=== PATIENT | female | born 1955 ===

== ENCOUNTER 2018-08-30 16:43 | Emergency (ER) | payer MEDICARE ==
[2018-08-30] MEDS ORDERED: ACETAMINOPHEN 325 MG TAB PO ONE (17:06)
--- NOTE | 2018-08-30 17:09 | Emergency Department Record ---
History of Present Illness - General Chief complaint: Lower Extremity Pain Stated complaint: RT LEG PAIN Time Seen by Provider: 08/30/18 17:03 Source: Patient Mode of Arrival: Ambulatory Limitations: No limitations - History of Present Illness Initial comments: The patient is here due to R knee pain for one day. It became painful when she was stretching to put her leg up on a stool. She denies any thigh pain, or calf pain or any leg swelling. ROM of the R knee does increase the pain along with ambulation. MD Complaint: Extremity pain, Joint pain Onset/Timin -: Days(s) Location: Right, Lower Leg History of Same: No Radiation: Proximal, Distal Severity scale (1-10): 5 Quality: Aching Consistency: Constant Improves with: Immobilization Worsens with: Walking, Weight bearing Associated Symptoms: Denies other symptoms - Related Data Home Medications Medication Instructions Recorded Confirmed Last Taken Atorvastatin Calcium 20 mg PO QHS 08/30/18 08/30/18 08/29/18 Gabapentin [Neurontin] 100 mg PO TID 08/30/18 08/30/18 08/30/18 Previous Rx's Medication Instructions Recorded Prednisone [Prednisone 20Mg] 40 mg PO DAILY #10 tab 08/30/18 Allergies Allergy/AdvReac Type Severity Reaction Status Date / Time erythromycin base AdvReac skin crawls Verified 08/30/18 16:56 Sulfa (Sulfonamide AdvReac nausea Verified 08/30/18 16:56 Antibiotics) Travel Screening - Travel/Exposure Within Last 30 Days Have you traveled within the last 30 days?: No Review of Systems Constitutional: Denies: Chills, Fever Eyes: Denies: Eye discharge ENT: Denies: Congestion Respiratory: Denies: Dyspnea Past Medical History - SOCIAL HISTORY Smoking Status: Never smoker Alcohol Use: None Drug Use: None - RESPIRATORY Hx Respiratory Disorders: No - CARDIOVASCULAR Hx Cardio Disorders: Yes Hx Cardiac Cath: Yes Hx Hypertension: Yes Hx Irregular Heartbeat: Yes Hx Pacemaker/Defib: Yes (pacemaker) Comment:: high cholesterol - NEURO Hx Neuro Disorders: No - GI Hx GI Disorders: Yes Hx Reflux: Yes - Hx Genitourinary Disorders: No - ENDOCRINE Hx Endocrine Disorders: Yes Hx Thyroid Disease: Yes - MUSCULOSKELETAL Hx Musculoskeletal Disorders: Yes Hx Arthritis: Yes - PSYCH Hx Psych Problems: Yes Hx Anxiety: Yes Hx Depression: Yes - HEMATOLOGY/ONCOLOGY Hx Hematology/Oncology Disorders: No Family Medical History Any Significant Family History?: No Physical Exam - General General Appearance: Alert, Oriented x3, Cooperative, No acute distress - Head Head exam: Atraumatic, Normocephalic, Normal inspection - Eye Eye exam: Normal appearance, PERRL - Neck Neck exam: Normal inspection, Full ROM. negative: Tenderness - Respiratory Respiratory exam: Normal lung sounds bilaterally. negative: Respiratory distress - Cardiovascular Cardiovascular Exam: Regular rate, Normal rhythm, Normal heart sounds - GI/Abdominal GI/Abdominal exam: Soft, Normal bowel sounds. negative: Rebound, Rigid, Tenderness - Extremities Extremities exam: Normal inspection, Full ROM, Normal capillary refill, Tenderness (The pain is very reproducible with palpation of the lateral R knee area. There is normal ROM with mild pain on full flexion. ), Other (The RLE is NVI with normal distal pulses.). negative: Calf tenderness (There is no calf, posterior knee or thign pain.), Joint swelling, Pedal edema Image of Full Body: 1 - Area of pain and tenderness. Course Vital Signs 08/30/18 16:53 Temperature 97.6 F Pulse Rate 66 Respiratory 20 Rate Blood Pressure 126/83 Pulse Ox 96 - Reevaluation(s) Reevaluation #1: I did discuss the xrays with the patient and the need for F/U with her PCP for recheck later this week. She may need to see an Pool Technician due to the significant arthritis. 08/30/18 17:56 Medical Decision Making - Data Complexity MDM Data: X-Ray Ordered and/or Reviewed - Radiology Data Radiology results: Report reviewed (R knee: possible loose body in lateral compartment. Significant DJD. ) Disposition Disposition: Discharge Clinical Impression: Knee pain, right Qualifiers: Chronicity: acute Qualified Code(s): M25.561 - Pain in right knee Disposition: Home, Self-Care Condition: (2) Stable Instructions: Arthralgia (ED) Additional Instructions: Please take Tylenol for pain along with a short course of Prednisone. Please see your family doctor later this week for recheck and bring an official Xray report to the visit. Prescriptions: Prednisone [Prednisone 20Mg] 40 mg PO DAILY #10 tab Forms: Patient Portal Access Time of Disposition: 17:58 Quality - Quality Measures Quality Measures: N/A - Blood Pressure Screening View Details: Yes Does Patient Have Any of the Following: No Blood Pressure Classification: Pre-Hypertensive BP Reading Systolic Measurement: 126 Diastolic Measurement: 83 Screening for High Blood Pressure: < Pre-Hypertensive BP, F/U Documented > [ [id number]] Pre-Hypertensive Follow-up Interventions: Referral to alternative/primary care provider.
--- NOTE | 2018-09-02 10:50 | RADIOLOGY REPORT ---
EXAM: RIGHT KNEE HISTORY: PATIENT HAS RIGHT LATERAL KNEE PAIN. TECHNIQUE: Four views of the right knee are provided without comparison examinations. FINDINGS: There is no radiographic evidence of a fracture or dislocation of the right knee. Moderate medial compartment joint space loss is noted with subchondral sclerosis and marginal osteophyte formation. There is a 10 mm radiopaque osseous body identified within the region of the posterolateral compartment suggesting a loose body. Clinical correlation is recommended. No significant suprapatellar bursal fluid is noted. IMPRESSION: NO RADIOGRAPHIC EVIDENCE OF AN ACUTE PROCESS INVOLVING THE RIGHT KNEE. DEGENERATIVE CHANGES OF THE RIGHT KNEE ARE NOTED DISCUSSED ABOVE. POSSIBLE LOOSE BODIES NOTED WITHIN THE LATERAL COMPARTMENT. IF THERE IS FURTHER CLINICAL CONCERN THEN AN MRI OF THE RIGHT KNEE CAN BE OBTAINED FOR FURTHER EVALUATION. JOB NUMBER: [id number] [facility]
== END 2018-08-30 18:18 | disposition home or self-care (01) ==
LOC: ER 16:43
DX: M25.561 Pain in right knee (principal); I10 Essential (primary) hypertension; Z95.0 Presence of cardiac pacemaker
CPT/HCPCS: 99283

== ENCOUNTER 2019-07-08 11:14 | Day surgery (SDC) | payer MEDICARE, SELFPAY ==
[2019-07-08] MEDS ORDERED: FENTANYL PF 100MCG/2ML VIAL IV ONE (11:15)
[2019-07-08] MEDS ORDERED: PROPOFOL 10 MG/ML VIAL IV ONE (11:15)
[2019-07-08] MEDS ORDERED: LIDOCAINE 2% MDV (20MG/ML) 20ML VIAL IV ONE (11:15)
--- NOTE | 2019-07-12 09:00 | Operative Note ---
SURGEON: Annamaria Sykes MD OPERATION: ESOPHAGOGASTRODUODENOSCOPY. INDICATIONS: This is a 64-year-old female with history of gastroesophageal reflux disease with intermittent episodes of dysphagia who presented for esophagogastroduodenoscopy. POSTOPERATIVE DIAGNOSES: 1. Normal esophagus, stomach, and duodenum. 2. Status post Mcbride dilatation to 60-Bruneian. ANESTHESIA: Sedation is per Anesthesia. Pulse oximetry was monitored throughout the procedure to maintain O2 saturation of 90% or greater. Supplemental oxygen was administered via nasal cannula. Cardiac and vital signs were monitored throughout the duration of the procedure, and they were stable. The procedure of esophagogastroduodenoscopy and risks and benefits of the procedure, including the risk of bleeding and perforation, among others, were explained to the patient who voiced understanding and agreed to have the procedure done. Physical examination was performed, and the patient was found stable for sedation. PROCEDURE: The patient was placed in the left lateral position. Sedation was initiated. A plastic bite block was inserted into the oral cavity. The Olympus [id number] gastroscope was introduced into the oral cavity and advanced to the proximal esophagus without difficulty. The esophageal mucosa was carefully examined upon introduction of the gastroscope. The proximal and mid and distal esophageal mucosa appeared normal. The gastroscope was then advanced into the stomach, and surveillance of the stomach revealed mild erythema along the gastric body no ulcers were noted. The gastroscope was then advanced to the descending duodenum without difficulty. The duodenal bulb and descending duodenum appeared normal. The gastroscope was then withdrawn into the stomach and retroflexion was performed. There were no lesions noted. The gastroscope was then withdrawn while carefully examining the gastric and esophageal mucosa. No other lesions noted. Multiple mid esophageal biopsies were obtained to rule out eosinophilic esophagitis. A Mcbride dilator size 60-Bruneian was then passed into the stomach with minimal resistance. Mcbride dilator was then withdrawn and the procedures were terminated. The patient tolerated procedures well without immediate complications. The patient remained with stable vital signs and was transferred to the recovery room. RECOMMENDATIONS: The patient is to continue on antireflux measures and continue on her proton pump inhibitors. I will be happy to see her back as needed. Thank you for allowing me to participate in the care of your patient. CHRISTA
== END 2019-07-08 13:20 | disposition home or self-care (01) ==
LOC: HOP 11:14
PROVIDERS: ATTEND Internal Medicine Gastroenterology
DX: R13.10 Dysphagia, unspecified (principal); Z87.19 Personal history of other diseases of the digestive system

== ENCOUNTER 2019-08-18 10:38 | Day surgery (SDC) | payer MEDICARE, SELFPAY ==
[2019-08-18] MEDS ORDERED: LIDOCAINE 2% MDV (20MG/ML) 20ML VIAL IV ONE (10:39)
[2019-08-18] MEDS ORDERED: PROPOFOL 10 MG/ML VIAL IV ONE (10:39)
--- NOTE | 2019-08-22 08:20 | Operative Note ---
OPERATION: COLONOSCOPY with cold snare polypectomy. PREOPERATIVE DIAGNOSIS: History of positive Cologuard and questionable family history of colon cancer. POSTOPERATIVE DIAGNOSIS: Ascending colon polyp. PREPARATION QUALITY: Excellent. ESTIMATED BLOOD LOSS: Minimum. SPECIMENS: Ascending colon polyp. COMPLICATIONS: None apparent. PROCEDURE: After informed consent was obtained from the patient, she was placed in the left lateral decubitus position in the endoscopy suite, sedated and monitored by the department of anesthesia. Digital rectal examination was unremarkable. A well-lubricated [id number] colonoscope was inserted into the rectum and advanced to the cecum. Preparation quality was excellent. The cecum, cecal bulb, ileocecal valve, and appendiceal orifice were unrevealing. The ascending colon demonstrated a 4-5 mm polyp removed with a cold snare. This polyp was retrieved. The remainder of the ascending colon, transverse colon, descending colon, sigmoid colon, and rectum were otherwise unremarkable. J-turn views of the anorectum were unremarkable. The endoscope was straightened, the rectal ampulla deflated, and the endoscope was removed. RECOMMENDATIONS: I would suggest the patient resume her medications and diet. She should undergo repeat exam in 5 years. As always, thank you for allowing me to participate in the healthcare of your patients. CHRISTA
== END 2019-08-18 12:53 | disposition home or self-care (01) ==
LOC: HOP 10:38
PROVIDERS: ATTEND Internal Medicine Gastroenterology
DX: R19.5 Other fecal abnormalities (principal); D12.2 Benign neoplasm of ascending colon; I10 Essential (primary) hypertension; E78.00 Pure hypercholesterolemia, unspecified; M19.90 Unspecified osteoarthritis, unspecified site